=== PATIENT | female | born 1945 | race Caucasian/White ===

== ENCOUNTER → 2016-05-19 | Outpatient (CLI) | payer OTHER ==
[~2016-05-19] MED LIST: ASPEC325 PO; CALC-51 PO; ESCI1TAB10 PO; HYDC25 PO; LISI-725 PO; LISI5TAB PO; MULT-506 PO; MULTTAB58 PO; NAPROXEN PO; NITR1CAP32 PO; RED600TA PO; RXC5 PO; [UNRECOGNIZED DRUG - OTHER] PO
--- NOTE | 2016-05-20 06:42 | PAP/PSG TECHNICIAN REPORT ---
[facility] Blending Kettle Tender Polysomnogram Report Study name: None Report date: 05/20/2016 Study date: 05/19/2016 Referring Physician: Daphne Yu M.D. Name: PRINCESS SOMMER Interpreting Physician: Ana Yu M.D. Date of : 1945 Blending Kettle Tender: Vonnie Stren [facility]. Sex: Female Age: 70 StudyType: PSG Weight: 172 lbs Height: 70 years, Height 5' 8" Neck Circum: 14 inches BMI: 26.15 Medications: Lexapro 20 mg, Lipitor 10 mg, Prinivil 20 mg, HCTZ 25 mg, Caltrate 600 + D, MultiVitamins Patient History 70 yr. old male here for a diagnostic sleep study with ETC02. Patient complains of restlessness, loud snoring. and wakes up choking. Patients [place] sleepiness scale score is 5/24. Parameters Monitored NPSG: E1-M2, E2-M1, Fp1-M2, Fp2-M1, F3-M2, F4-M2, F4-M1, C3-M2, C4-M2, C4-M1, O1-M2, O2-M2, O2-M1, T3-M2, T4-M1, P3-M2, P4-M1, CHIN1, CHIN2, HR, EKG, Legs, PFLOW, SNOR, FLOW, CFLOW, Tidal Volume, THOR, ABDO, SpO2, PLTH, CPRESS, ETCO2 Wave, ETCO2, pH Sleep Architecture Sleep Stages Time at Lights Off 8:29:57 PM STAGES Time (min.) TST (%) Time at Lights On 5:41:27 AM Wake 206.0 -- Total Recording Time (TRT) 552.00 min. N1 66.5 19 Total Sleep Period (TSP) 487.0 min. N2 229.0 66 Total Sleep Time (TST) 345.5min. N3 8.0 2 Awake Time 206.5 min. REM 42.0 12 Wake after Sleep Onset 143.0 min. Sleep Efficiency (SE) 63 % Sleep Onset Latency (ABEL) 63.0 min. Number of Stage 1 Shifts None Awakenings 31 Stage Changes 169 Number of REM periods 5 REM 42.0 12 REM Latency 162.5 min. NREM 303.5 88 Body Position Analysis Supine Right Left Side Prone Vertical Total Sleep Time (min.) 351.2 34.8 61.5 96.27 0.0 1.1 Total Sleep Time (%) 72% 10% 18% 28 0% N/A% Total Sleep Time REM (min.) 42.0 0.0 0.0 None 0.0 0.0 Total Sleep Time NREM (min.) 207.2 34.8 61.5 None 0.0 0.0 Intermittent Wake (min.) 102.0 65.1 37.8 None 0.0 1.1 Total Sleep Period (%) 62% None None None None None Arousals Myoclonus (PLM) * Events Count Index Events Count Index Spontaneous 4 1 Events Awake (PLMW) 220 64.1 Respiratory 53 9.9 Events Asleep w/ Arousal (PLMA) 34 5.9 PLM 32 6 Events Asleep w/o Arousal (PLMS) 458 79.5 Snoring 12 2 Total Asleep 492 85.4 Total 101 18 Total 712 77 Respiratory Analysis * CA OA MA CH H RERA Total Count 0 41 0 0 133 0 174 Index 0.0 7.1 0.0 0 23.1 0 30.2 Mean Duration 0.0 21.0 0.0 0.00 23.3 0.0 22.8 Longest Duration 0.0 38.2 0.0 0.00 0.0 0.0 47.2 Respiratory Event Summary Total Supine ~Supine Right Left Prone REM NREM Apneas Count 41 38 3 0 3 N/A 13 28 Index 7.1 9 2 0.0 2.9 N/A 19 6 Hypopneas (4% Desat) Count 133 118 15 0 15 N/A 15 118 Index 23.1 28.4 9 0.0 14.6 N/A 21.4 23.3 Apneas & All Hypopneas Count 174 156 18 0 18 N/A 28 146 Index 30.2 38 11 0 18 N/A 40.0 28.9 Respiratory Events (Charge Account Clerk+All Hyp+RERA) Count 174 156 18 0 18 N/A 28 146 Index 30.2 38 11 0.0 17.6 N/A 40.0 28.9 Respiratory Related Arousal Count 53 156 2 0 2 N/A 9 48 Index 9.9 13 1 0 2 N/A 13 9 Snoring Analysis Supine Right Left Prone REM NREM Total Snore duration 24.4 min Snores count 872 150 156 N/A 348 830 1,178 Snore mean duration 1.2 Sec Snores index 210 259 152 N/A 497.1 164.1 204.6 TST with snoring (%) 7.1% SpO2 Analysis Total REM NREM Awake <50% 0.0 min. 0.0 min. 0.0 min. 0.0 min. 51 - 60% 0.0 min. 0.0 min. 0.0 min. 0.0 min. 61 - 70% 0.0 min. 0.0 min. 0.0 min. 0.0 min. 71 - 80% 0.0 min. 0.0 min. 0.0 min. 0.0 min. 81 - 90% 220.5 min. 11.3 min. 168.6 min. 40.6 min. 91 - 100% 324.8 min. 30.7 min. 134.9 min. 159.2 min. Average 91 91 90 92 Minimum SpO2 82 82 82 83 Desaturation Event Index 20.2 34.3 29.1 5.5 # Desat. Events below 89% 125 18 102 5 Time(%) with Saturation below 89% 8.9 0.8 7.4 0.7 Time(min.) with Saturation below 89% 48.4 4.6 40.2 3.6 Heart Rate Analysis End Tidal CO2 Analysis Min (bpm) Max (bpm) Average (bpm) TSP (mins) % of TSP Awake 55 75 65 Above 55 mmHg 0.0 0.0 NREM 55 71 63 50-55 mmHg 0.0 0.0 REM 59 73 65 45-50 mmHg 0.0 0.0 Overall 55 73 63 40-45 mmHg 0.1 0.0 35-40 mmHg 31.0 9.0 30-35 mmHg 122.2 35.4 Average ETCO2 0.0 Supplemental O2 Values Minimum O2 level: None Value Start Time End Time Blending Kettle Tender Comments Mrs. Sommer slept in the right, left, and supine positions. No cardiac arrhythmia. PLMs noted. No bruxism noted. Snoring was noted and scored as a 2 on a scale of 0 through 5. (0=no snoring, 5=snoring loud enough to be heard through a closed door or down the olea way) Mrs. Sommer awoke to use the restroom once during the night. Mrs. Sommer stated, I slept okay, I should have take Alieve for my hip pain. The final report will be interpreted and signed by a sleep physician. The completed physician report will then be placed in the patient medical record. Therapy (cm H2O) 0 TIB (min.) 551.5 TST (min.) 345.5 Sleep Onset (min.) 63.0 REM Onset From Sleep (min.) 162.5 Sleep Efficiency % 63 Wakefulness (%) 37 Wakefulness (min.) 206.5 NREM 1 (%) 19 NREM 1 (min.) 66.5 NREM 2 (%) 66 NREM 2 (min.) 229.0 NREM 3 (%) 2 NREM 3 (min.) 8.0 REM (%) 12 REM (min.) 42.0 # Arousals 101 Arousal Index 18 # Snore 1,178 Snore Index 204.6 AHI 30.2 AHI Supine 38 AHI Non-Supine 11 NREM AHI 28.9 REM AHI 40.0 RDI 30.2 # Obstructive Apnea 41 # Central Apnea 0 # Mixed Apnea 0 # Hypopneas 133 RERAs 0 Total Respiratory Events 187 Time Below SpO2 89% (min.) 44.8 Mean NREM SpO2 (%) 90 Mean REM SpO2 (%) 91 Mean Sleep SpO2 (%) 91 Min NREM SpO2 (%) 82 Min REM SpO2 (%) 82 Position Supine (min.) 351.2 Position Non-supine (min.) 96.3 LM Index Sleep 85.4 LM Index NREM 87.8 LM Index REM 68.6 Mean Heart Rate (bpm) 63 Min Heart Rate (bpm) 55
--- NOTE | 2016-05-31 18:35 | POLYSOMNOGRAPH REPORT ---
REFERRING PERSON: Dr. Yusuf Yu. SHRINK PIT OPERATOR: Vonnie Stern. Ms. Lopez is a 70-year-old female sent for a diagnostic sleep study. She complains of restlessness, loud snoring and waking up feeling like she cannot catch her breath/choking. Her [place] sleepiness scale score on the evening of this study is 5, BMI is 26.15. Following the technical and digital specifications of the [place] [employer] (AASM) a standard diagnostic polysomnogram was performed monitoring EEG, EOG, EMG (chin and leg deviations), oxygen saturation, body position, digital video, respiratory effort and airflow.? The sleep Stage and event scoring was based on the AASM Manual for the Scoring of Sleep and Associated Events 2007 edition.? Apneas are defined as a drop in the peak thermal sensor excursion by >90% of baseline for at least 10 seconds.? Hypopneas were scored using the 4% oxygen desaturation rule (4A-Medicare) and a decrease in the nasal pressure excursions by >30% of baseline for at least 10 seconds.? Respiratory effort-related arousal (RERA's) is defined as a sequence of breaths lasting at least 10 seconds characterized by increasing respiratory effort or flattening of the nasal pressure waveform leading to an arousal from sleep when the sequence of breaths does not meet criteria for an apnea or hypopnea.? Apnea Hypopnea index (AHI) is defined as the number of apneas and hypopneas occurring in an hour of sleep.? Respiratory disturbance index (RDI) is defined as the number of apneas, hypopneas, and RERA's occurring in an hour of sleep. Ms. Lopez's total sleep period time was 487 minutes. Total sleep time was 345.5 minutes. Sleep efficiency was 63%. Latency to sleep onset was 63 minutes with wake after sleep onset of a 143 minutes. Total non-REM sleep time was 303.5 minutes. She spent 19% of that time in N1 sleep, 66% in N2 sleep and 2% in N3 sleep. REM latency was 162.5 minutes. Total REM sleep time was 42 minutes or 12% of total sleep time. There were 101 cortical arousals from sleep. Four of these arousals were spontaneous, 53 were due to respiratory events, 32 due to periodic limb movements of sleep, and 12 were due to snoring. There were 492 periodic limb movements noted on this test. Limb movement index was 85.4. Limb movement with arousal index was 5.9. On this sleep study, this patient had no central, 41 obstructive, and no mixed apneas. Additionally, there were 133 hypopnea. Apnea-hypopnea index was 30.2 consistent with severe sleep apnea. Supine AHI was 38m non-supine AHI was 11. REM AHI was 40, non-REM AHI was 28.9. 1178 snoring events were recorded. Total sleep time with snoring was 7.1%. Mean saturation was 91% with desaturations to 82%. Saturations were less than 89% for 48.4 minutes of recorded time. This is significant nocturnal hypoxemia. There was no cardiac ectopy noted on this study. Heart rates during sleep ranged from a low of 55 beats per minute to a high of 73 beats per minute. End tidal CO2 data was incomplete. IMPRESSION AND PLAN: A 70-year-old female with evidence of severe sleep apnea and significant nocturnal hypoxemia on this sleep study. 1. This patient would likely benefit from positive airway pressure therapy. She should return to the sleep lab for a full night titration and then based on those results be started on equipment at home. A download from her machine can be reviewed in 1 month both to check compliance as well as AHI and further pressure adjustments can occur at that time. 2. Should this patient be unwilling or unable to tolerate CPAP therapy, she should be referred to ear, nose and throat or oral surgery/dental medicine (if appropriate) to discuss alternative treatments for sleep disordered breathing.
== END | disposition home or self-care (01) ==
LOC: C.NEUR 20:00
PROVIDERS: ATTEND Family Medicine
DX: F51.11 Primary hypersomnia (principal); R06.83 Snoring; R53.83 Other fatigue; G47.61 Periodic limb movement disorder; G25.81 Restless legs syndrome; J44.9 Chronic obstructive pulmonary disease, unspecified; I10 Essential (primary) hypertension

== ENCOUNTER → 2016-07-02 | Outpatient (CLI) | payer OTHER ==
--- NOTE | 2016-07-03 06:22 | PAP/PSG TECHNICIAN REPORT ---
[facility] Policy Service Coordinator Polysomnogram Report Study name: None Report date: 07/03/2016 Study date: 07/02/2016 Referring Physician: Daphne Yu M.D. Name: ROS PRINCESS HARJEET Interpreting Physician: Ana Yu M.D. Date of : 1945 Policy Service Coordinator: Lesa Young RPSGT. Sex: Female Age: 70 Study Type: PSG PAP Weight: 172 lbs 14 in Height: 70 years, Height 5' 8" Neck Circum: BMI: 26.15 Medications: Lexapro 20 mg, Lipitor 10 mg, Prinivil 20 mg, HCTZ 25 mg, Caltrate 600 + D, Multi Vitamins Patient History 70 yr-old female here for a new CPAP treatment study. She was found to be positive for TERESA with an AHI of 30. Her diagnostic study was on 05/19/16. She chose a Mirage FX Soft edge nasal mask size small from [employer]. The test was started on room air and 4 CMH2O. ETCO2 testing could be done with CPAP in place. Room 1 Parameters Monitored NPSG: E1-M2, E2-M1, Fp1-M2, Fp2-M1, F3-M2, F4-M2, F4-M1, C3-M2, C4-M2, C4-M1, O1-M2, O2-M2, O2-M1, T3-M2, T4-M1, P3-M2, P4-M1, CHIN1, CHIN2, HR, EKG, Legs, PFLOW, SNOR, FLOW, CFLOW, Tidal Volume, THOR, ABDO, SpO2, PLTH, CPRESS, ETCO2 Wave, ETCO2, pH Sleep Architecture Sleep Stages Time at Lights Off 9:26:08 PM STAGES Time (min.) TST (%) Time at Lights On 5:35:08 AM Wake 129.5 -- Total Recording Time (TRT) 489.00 min. N1 57.0 16 Total Sleep Period (TSP) 466.0 min. N2 211.5 59 Total Sleep Time (TST) 359.5min. N3 36.5 10 Awake Time 129.5 min. REM 54.5 15 Wake after Sleep Onset 106.5 min. Sleep Efficiency (SE) 74 % Sleep Onset Latency (ABEL) 23.0 min. Number of Stage 1 Shifts None Awakenings 24 Stage Changes 128 Number of REM periods 9 REM 54.5 15 REM Latency 151.5 min. NREM 305.0 85 Body Position Analysis Supine Right Left Side Prone Vertical Total Sleep Time (min.) 244.3 76.7 64.2 140.92 20.1 0.0 Total Sleep Time (%) 56% 21% 18% 39 5% N/A% Total Sleep Time REM (min.) 31.0 0.0 23.5 None 0.0 0.0 Total Sleep Time NREM (min.) 170.6 76.7 40.7 None 17.0 0.0 Intermittent Wake (min.) 42.7 38.0 45.7 None 3.1 0.0 Total Sleep Period (%) 51% None None None None None Arousals Myoclonus (PLM) * Events Count Index Events Count Index Spontaneous 33 6 Events Awake (PLMW) 128 59.3 Respiratory 3 0.7 Events Asleep w/ Arousal (PLMA) 59 9.8 PLM 59 10 Events Asleep w/o Arousal (PLMS) 311 51.9 Snoring 4 1 Total Asleep 370 61.8 Total 99 17 Total 498 61 Respiratory Analysis * CA OA MA CH H RERA Total Count 0 1 0 0 7 3 8 Index 0.0 0.2 0.0 0 1.2 1 1.8 Mean Duration 0.0 10.2 0.0 0.00 15.6 14.5 14.8 Longest Duration 0.0 10.2 0.0 0.00 0.0 16.4 18.5 Respiratory Event Summary Total Supine ~Supine Right Left Prone REM NREM Apneas Count 1 1 0 0 0 0 0 1 Index 0.2 0 0 0.0 0.0 0 0 0 Hypopneas (4% Desat) Count 7 5 2 1 1 0 0 7 Index 1.2 1.5 1 0.8 0.9 0.0 0.0 1.4 Apneas & All Hypopneas Count 8 6 2 1 1 0 0 8 Index 1.3 2 1 1 1 0 0.0 1.6 Respiratory Events (Lobster Catcher+All Hyp+RERA) Count 8 9 2 1 1 0 0 8 Index 1.8 3 1 0.8 0.9 0.0 0.0 2.2 Respiratory Related Arousal Count 3 9 0 0 0 0 0 4 Index 0.7 1 0 0 0 0 0 1 Snoring Analysis Supine Right Left Prone REM NREM Total Snore duration 2.4 min Snores count 54 16 10 1 15 66 81 Snore mean duration 1.8 Sec Snores index 16 13 9 4 16.5 13.0 13.5 TST with snoring (%) 0.7% Desaturation Event Summary: Minimum %SpO2 Event Count Mean/Min/Max Duration(sec.) Desaturation Index % Time In Bed > 90 16 19.5 / 11.0 / 45.0 6.4 30.9 86 - 90 12 16.9 / 9.0 / 44.0 2.2 69.1 81 - 85 0 N/A 0.0 0.0 76 - 80 0 N/A 0.0 0.0 71 - 75 0 N/A 0.0 0.0 66 - 70 0 N/A 0.0 0.0 61 - 65 0 N/A 0.0 0.0 56 - 60 0 N/A 0.0 0.0 51 - 55 0 N/A 0.0 0.0 < 50 0 N/A 0.0 0.0 Total REM NREM Awake <50% 0.0 min. 0.0 min. 0.0 min. 0.0 min. 51 - 60% 0.0 min. 0.0 min. 0.0 min. 0.0 min. 61 - 70% 0.0 min. 0.0 min. 0.0 min. 0.0 min. 71 - 80% 0.0 min. 0.0 min. 0.0 min. 0.0 min. 81 - 90% 333.8 min. 37.6 min. 235.8 min. 60.4 min. 91 - 100% 149.1 min. 16.9 min. 68.1 min. 64.1 min. Average 90 90 90 91 Minimum SpO2 86 88 86 86 Desaturation Event Index 2.5 0.0 2.2 4.2 # Desat. Events below 89% 15 N/A 6 9 Time(%) with Saturation below 89% 3.4 0.2 2.2 1.1 Time(min.) with Saturation below 89% 16.4 0.8 10.4 5.2 Time (mins) REM (mins) NREM (mins) % of TST SpO2 Below 90% 11 N/A N11 36.2 SpO2 Below 88% 2 0 0 0 Heart Rate Analysis Min (bpm) Max (bpm) Average (bpm) Awake 57 127 65 NREM 54 127 64 REM 57 71 65 Overall 54 127 64 Supplemental O2 Values Minimum O2 level: None Value Start Time End Time Policy Service Coordinator Comments Ms. Lopez slept in the right, left, supine and prone positions. No cardiac arrhythmias were noted. PLMs and arousals from leg movements were noted. No bruxism noted. CPAP was initiated at +4 CMH2O and up-titrated to a level of +6 CMH2O, Cflex 2 which nearly eliminated all respiratory events and snoring. A Mirage FX Soft edge nasal mask size small from [employer] was used during titration She awoke to use the restroom one time during the night. Ms. Lopez stated that she slept better than usual. The final report will be interpreted and signed by a sleep physician. The completed physician report will then be placed in the patient medical record. Therapy Event: Therapy (cm H20) 4 6 Total Time at Pressure (min.) 183.4 305.6 TST at Pressure (min.) 118.9 240.6 # Periods 1 1 Sleep Onset (min.) 23.0 0.0 REM Onset (min.) 174.5 0.0 Sleep Efficiency % 64 78 Wakefulness (%) 35.2 21.3 Wakefulness (min.) 64.5 65.0 NREM 1 (%) 8.2 13.7 NREM 1 (min.) 15.0 42.0 NREM 2 (%) 44.2 42.7 NREM 2 (min.) 81.0 130.5 NREM 3 (%) 7.6 7.4 NREM 3 (min.) 14.0 22.5 REM (%) 4.9 14.9 REM (min.) 8.9 45.6 # Arousals 24 75 Arousal Index 12.1 18.7 # Snore 25 56 Snore Index 12.6 14.0 AHI 3.0 0.5 AHI Supine 6.3 0.4 AHI Non-Supine 0.8 0.7 NREM AHI 3.3 0.6 REM AHI 0.0 0.0 RDI 3.5 1.0 # Obstructive 1 0 # Central Ap 0 0 # Mixed 0 0 # Hypopneas 5 2 RERAS 1 2 Total Respiratory Events 7 4 Time Below SpO2 89.00% (min.) 9.4 1.8 Mean NREM SpO2 (%) 90 90 Mean REM SpO2 (%) 90 90 Mean Sleep SpO2 (%) 90 90 Min NREM SpO2 (%) 86 86 Min REM SpO2 (%) 89 88 Position Supine (min.) 47.3 154.3 Position Non-supine (min.) 71.6 86.3 LM Index Sleep 83.2 51.1 LM Index NREM 85.1 40.6 LM Index REM 60.4 96.1 Mean Heart Rate (bpm) 67 63 Min Heart Rate (bpm) 59 54
--- NOTE | 2016-07-14 07:49 | POLYSOMNOGRAPH REPORT ---
REFERRING PERSON: Dr. Yusuf Yu. SUPERVISOR CAP AND HAT PRODUCTION: Lesa Young. Ms. Lopez is a 70-year-old female who was diagnosed with severe obstructive sleep apnea. She returns to the sleep lab for a CPAP titration study. [place] sleepiness scale score on the evening of this study was not recorded. BMI 26.15. Following the technical and digital specifications of the [place] [employer] (AASM) a standard diagnostic polysomnogram was performed monitoring EEG, EOG, EMG (chin and leg deviations), oxygen saturation, body position, digital video, respiratory effort and airflow. The sleep Stage and event scoring was based on the AASM Manual for the Scoring of Sleep and Associated Events 2007 edition. Apneas are defined as a drop in the peak thermal sensor excursion by >90% of baseline for at least 10 seconds. Hypopneas were scored using the 4% oxygen desaturation rule (4A-Medicare) and a decrease in the nasal pressure excursions by >30% of baseline for at least 10 seconds. Respiratory effort-related arousal (RERA's) is defined as a sequence of breaths lasting at least 10 seconds characterized by increasing respiratory effort or flattening of the nasal pressure waveform leading to an arousal from sleep when the sequence of breaths does not meet criteria for an apnea or hypopnea. Apnea Hypopnea index (AHI) is defined as the number of apneas and hypopneas occurring in an hour of sleep. Respiratory disturbance index (RDI) is defined as the number of apneas, hypopneas, and RERA's occurring in an hour of sleep. Ms. Lopez's total sleep period time was 466 minutes. Total sleep time was 359.5 minutes. Sleep efficiency was 74%. Latency to sleep onset was 23 minutes with wake after sleep onset of 106.5 minutes. Total non-REM sleep time was 305 minutes. She spent 16% of that time in N1 sleep, 59% in N2 sleep and 10% in N3 sleep. REM latency was 151.5 minutes. Total REM sleep time was 54.5 minutes or 15% of total sleep time. There were 99 cortical arousals from sleep. 33 of these arousals were spontaneous, 3 were due to respiratory events, 59 were due to periodic limb movements of sleep and 4 were due to snoring. There were 370 periodic limb movements noted on this test. Limb movement index was 61.8 and limb movement with arousal index was 9.8. On this titration, Ms. Lopez had no central, 1 obstructive, and no mixed apneas. She has 7 hypopneas and 3 RERA. Overall, apnea-hypopnea index was 1.3. 81 snoring events were recorded. Total sleep time with snoring was 0.7%. Mean saturation was borderline low at 90%. There were desaturations to 86%. During the course of the night, there were saturations less than 89% for 16.4 minutes of recorded time. There was no cardiac ectopy noted on this study. Heart rates ranged from a low of 54 to a high of 127 beats per minute during sleep. As stated above, this was a CPAP titration study. Ms. Lopez chose a Mirage FX small nasal mask for her titration. She was titrated from a CPAP pressure of 4 to a CPAP pressure of 6 over the course of the night. She was observed on a pressure of 6 for 240.6 minutes of recorded time. There were 45.6 minutes of supine REM sleep on this pressure. AHI was 0.5 and RDI was 1.0 on this pressure. Saturations were less than 89 for only 1.8 minutes of recorded time. IMPRESSION AND PLAN: Successful CPAP titration study in this patient with known severe sleep apnea. I would recommend that this patient be started on CPAP at a pressure of 6. A download from her machine can be reviewed in 1 month both to check compliance as well as AHI and further pressure adjustments can occur at that time.
== END | disposition home or self-care (01) ==
LOC: C.NEUR 20:00
PROVIDERS: ATTEND Family Medicine
DX: G47.33 Obstructive sleep apnea (adult) (pediatric) (principal)

== ENCOUNTER 2016-09-18 05:16 | Inpatient (IN) | payer OTHER ==
[2016-08-26 14:28] VITALS: Ht 174 cm; Wt 76.4 kg
--- NOTE | 2016-08-26 15:03 | PAT Medication Instructions ---
Service Date Aug 26, 2016. Current Home Medication List Calcium Carbonate-Vitamin D (Calcium), 1 TAB PO QAM Escitalopram Oxalate (Lexapro), 20 MG PO QAM Hydrochlorothiazide (Hctz *), 25 MG PO QAM Lisinopril (Zestril), 20 MG PO QAM Multivitamin (Multivitamin), 1 TAB PO QAM Nitrofurantoin Macrocrystals (Macrodantin), 100 MG PO TID [Naproxen], 1 TAB PO BID PRN for dish network installer Instructions For Your Scheduled Surgery - Hold the following medications 14 days prior to surgery per surgeon's instructions: [Naproxen], 1 TAB PO BID PRN - Hold the following medications the morning of surgery: Hydrochlorothiazide (Hctz *), 25 MG PO QAM Lisinopril (Zestril), 20 MG PO QAM Calcium Carbonate-Vitamin D (Calcium), 1 TAB PO QAM Multivitamin (Multivitamin), 1 TAB PO QAM - Take the following medications the morning of surgery with a sip of water OTHERWISE NOTHING TO EAT OR DRINK AFTER MIDNIGHT: Escitalopram Oxalate (Lexapro), 20 MG PO QAM If you have any questions please call us at [phone] or [phone] or [phone]
--- NOTE | 2016-08-26 15:45 | DIAGNOSTIC IMAGING REPORT ---
CHEST PREADMISSION(PA/LAT) CLINICAL HISTORY: Preoperative chest COMPARISON STUDY: 07/14/2014 FINDINGS: The cardiac and mediastinal contours are normal. There is no evidence of focal pulmonary consolidation. There is no evidence of failure. No pleural effusions are visualized.[ There are minimal left basilar atelectatic changes IMPRESSION: No active disease in the chest. Electronically signed by: Des Marie M.D. 08/26/2016 3:44 PM Dictated Date/Time: 08/26/2016 3:43 PM
[2016-08-26 16:18] LABS: URINE APPEARANCE CLEAR (CLEAR); URINE BILIRUBIN NEG (NEG); URINE COLOR YELLOW; URINE EPITHELIAL CELL AUTO >30 /lpf (0-5); URINE NITRITE NEG (NEG); URINE SPECIFIC GRAVITY 1.021 (1.000-1.030); UROBILINOGEN NEG (NEG)
[2016-08-26 16:21] LABS: MANUAL MICROSCOPIC REQUIRED? NO; REVIEW REQ? NO
[2016-08-26 16:24] LABS: PARTIAL THROMBOPLASTIN RATIO 0.9; PROTHROMBIN TIME (PATIENT) 10.5 SECONDS (9.0-12.0)
[2016-08-26 16:39] LABS: BASO % 0.6 %; BASO ABS # 0.03 K/uL (0-0.2); COMPLETE YES; EOS % 4.1 %; HEMATOCRIT 39.1 % (37-47); IG% 0.2 %; LYMPH ABS # 1.35 K/uL (1.2-3.4); MEAN CELL VOLUME 90.5 fL (80-100); MEAN CORPUSCULAR HEMOGLOBIN 30.8 pg (25-34); MEAN PLATELET VOLUME 9.8 fL (7.4-10.4); MONO % 8.2 %; NEUT % 57.9 %; PLATELET COUNT 261 K/uL (130-400); RED BLOOD COUNT 4.32 M/uL (4.2-5.4); WHITE BLOOD COUNT 4.66 K/uL (4.8-10.8)
[2016-08-26 16:42] LABS: BUN/CREATININE RATIO 26.8 (10-20); CALCIUM 9.8 mg/dl (8.5-10.1); CREATININE 0.92 mg/dl (0.60-1.20); POTASSIUM 4.8 mmol/L (3.5-5.1)
[2016-09-18] VITALS (9 sets, daily range): BP systolic 90–131; BP diastolic 53–73; PULSE 60–82; TEMP 36.4–36.7; O2SAT 92–97
[~2016-09-18] VITALS: Ht 174 cm; Wt 76.4 kg
[~2016-09-18 05:16] MED LIST changes: -ASPEC325 PO; -LISI5TAB PO; -MULTTAB58 PO; -NITR1CAP32 PO; -RED600TA PO; -RXC5 PO; -[UNRECOGNIZED DRUG - OTHER] PO
[2016-09-18] MEDS ORDERED: GABAPENTIN 300 MG CAP PO SCH (06:00)
[2016-09-18] MEDS ORDERED: CEFAZOLIN 2000 MG/60 ML D5W 60 ML IV SCH (06:00)
[2016-09-18] MEDS ORDERED: ROPIVACAINE 5MG/ML 30 ML 150 MG, BUPIVACAINE/EPINEPHR 0.5% MPF 30 ML, KETOROLAC TROMETH... INFIL SCH ×7 (06:00)
[2016-09-18] MEDS ORDERED: FAMOTIDINE 20 MG TAB PO SCH (06:00)
[2016-09-18] MEDS ORDERED: LACTATED RINGER'S 1000ML 1,000 ML IV SCH (06:00)
[2016-09-18] MEDS ORDERED: ACETAMINOPHEN 500 MG TAB PO SCH (06:00)
[2016-09-18] MEDS ORDERED: LACTATED RINGER'S 1000ML IV SCH (06:00)
[2016-09-18] MEDS ORDERED: LACTATED RINGER'S 1000ML 500 ML IV ONE (06:00)
[2016-09-18] MEDS ORDERED: BUPIVACAINE 0.5 % 5 MG/1 ML PF 10ML VIAL ONE (06:27)
[2016-09-18] MEDS: TRANEXAMIC ACID INJ 1,000 MG in SODIUM CHLORIDE 0.9% 100ML 100 ML IV SCH ×2 (06:30→06:38)
--- NOTE | 2016-09-18 06:30 | History and Physical ---
History & Physical Date Sep 18, 2016. Chief Complaint Osteoarthritis Right Hip History of Present Illness The patient is a 71 year old female with complaints of chronic Right hip pain Past Medical/Surgical History Medical Problems: (1) HTN (hypertension), depression, sleep apnea with CPAP, celiac disease Additional History Hepatic Disease: No Endocrine Disorder: No Kidney Disease: No Hypertension: Yes Heart Disease: No Bleeding Tendencies: No Infectious Diseases: No Allergies Coded Allergies: Shrimp (Verified Allergy, Intermediate, SWELLING LIPS AND FACE, 09/18/16) Atorvastatin (Unverified Allergy, Unknown, MUSCLE ACHES, 09/18/16) Gluten (Verified Allergy, Unknown, CELIAC-WHEAT,BARLEY ALLERGY, 09/18/16) Latex1 -Allergic Contact Dermititis (Unverified Allergy, Unknown, CONATCT- ITCHINESS, 09/18/16) Home Medications Scheduled Calcium Carbonate-Vitamin D (Calcium), 1 TAB PO QAM Escitalopram Oxalate (Lexapro), 20 MG PO QAM Hydrochlorothiazide (Hctz *), 25 MG PO QAM Lisinopril (Zestril), 20 MG PO QAM Multivitamin (Multivitamin), 1 TAB PO QAM Scheduled PRN [Naproxen], 1 TAB PO BID PRN for RN Physical Examination Skin: warm/dry, no rash Eyes: normal inspection, EOMI, sclerae normal ENT: normal ENT inspection, pharynx normal Head: normocephalic, atraumatic Neck: supple, no adenopathy, trachea midline Respiratory/Chest: lungs clear, normal breath sounds, no respiratory distress Cardiovascular: regular rate, rhythm, no edema, no murmur Abdomen / GI: normal bowel sounds, non tender Back: normal inspection Extremities: normal inspection, normal range of motion Neurologic/Psych: no motor/sensory deficits, alert, normal reflexes, oriented x 3 Addiitonal Comments: antalgic gait, pain with forced internal rotation right hip Diagnosis Osteoarthritis Right Hip ASA Classification: ASA Class II Plan of Treatment Right total hip arthroplasty
[2016-09-18] MEDS ORDERED: BACITRACIN 50000 UNIT VIAL ONE (06:38)
[2016-09-18] MEDS ORDERED: ORTHO JOINT ANESTHETIC ONE (06:38)
[2016-09-18] MEDS ORDERED: LIDOCAINE HCL 2% 2 ML VIAL (20MG/ML) ONE (06:42)
[2016-09-18] MEDS ORDERED: MIDAZOLAM HCL 1 MG/ML 2ML VIAL ONE ×2 (06:42→07:06)
[2016-09-18] MEDS ORDERED: PROPOFOL IV EMULSION 10 MG/ML 20 ML VIAL IV ONE (06:42)
[2016-09-18] MEDS ORDERED: FENTANYL CITRATE INJ 50 MCG/1 ML 2 ML VIAL ONE (06:42)
[2016-09-18] MEDS ORDERED: ONDANSETRON INJ 2 MG/ML 2 ML VIAL ONE (07:17)
[2016-09-18] MEDS ORDERED: ATROPINE SULFATE 0.1 MG/ML 5ML SYR IV PRN (08:45)
[2016-09-18] MEDS ORDERED: EpHEDrine SULFATE INJ 50 MG/ML AMP IV PRN (08:45)
[2016-09-18] MEDS ORDERED: FENTANYL CITRATE INJ 50 MCG/1 ML 2 ML VIAL IV PRN (08:45)
[2016-09-18] MEDS ORDERED: ONDANSETRON INJ 2 MG/ML 2 ML VIAL IV PRN ×2 (08:45→09:15)
[2016-09-18] MEDS ORDERED: EpHEDrine SULFATE 50MG/5ML SYR ONE (09:08)
--- NOTE | 2016-09-18 09:14 | [facility] Post Operative Brief Note ---
Immediate Operative Summary Operative Date Sep 18, 2016. Pre-Operative Diagnosis Right Hip Osteoarthritis Post-Operative Diagnosis Right Hip Osteoarthritis Procedure(s) Performed Right Anterior Total Hip Arthroplasty Uncemented Surgeon Dr Abraham Gutierrez Glass Processing Worker Surgeon(s) Lloyd Hernandez PA-C Estimated Blood Loss 300cc Findings as above Specimens As Per Surgeon A. Femoral Head Complication(s) None Disposition Recovery Room / PACU
[2016-09-18] MEDS ORDERED: MAGNESIUM HYDROXIDE SUSP 30 ML UDC PO PRN (09:15)
[2016-09-18] MEDS ORDERED: SILVER SULFADIAZINE 1% CR 50 GM JAR EXT PRN (09:15)
[2016-09-18] MEDS ORDERED: MoRPHine SULFATE 2 MG/ML CARP IV PRN (09:15)
[2016-09-18] MEDS ORDERED: SOD PHOSPHATE/SOD BIPHOSPHATE ENEMA 132 ML BTL PR PRN (09:15)
[2016-09-18] MEDS ORDERED: BISACODYL 10 MG SUPP PR PRN (09:15)
[2016-09-18] MEDS ORDERED: METOCLOPRAMIDE HCL INJ 5 MG/ML 2 ML VIAL IV PRN (09:15)
--- NOTE | 2016-09-18 10:02 | OPERATIVE REPORT ---
DATE OF OPERATION: 09/18/2016 PREOPERATIVE DIAGNOSIS: Primary osteoarthritis of the right hip. POSTOPERATIVE DIAGNOSIS: Same. PROCEDURE: Right total hip arthroplasty. SURGEON: Dr. Abraham Gutierrez. FARROWING WORKER: Alli Hernandez PA-C, whose assistance was necessary for helping with retraction and closure. ANESTHESIA: Spinal. COMPLICATIONS: None. CONDITION: Stable to PACU. IMPLANTS USED: I used a Biomet Taperloc total hip arthroplasty with a size 12 Taperloc stem with a high offset. A G7 52 mm acetabular cup with a single 20 mm screw and a G7 36 E1 poly liner and a 36 0 neck ceramic head. INDICATIONS: Mili is a pleasant 71-year-old female who presented to my office with complaints of chronic right hip and groin pain. X-rays and clinical examination were diagnostic for primary osteoarthritis of the right hip. After failing conservative treatment, she elected to undergo a right total hip arthroplasty. OPERATION AND FINDINGS: On 09/18/2016, she arrived at [facility] for the above procedure. She was seen in the preoperative holding area and the operative extremity was identified and signed. She was given a preoperative antibiotic and a spinal anesthetic. She was taken back to the operating room, laid on the table in supine position and given basic sedation. The right leg was then placed in Purist leg positioner. The right hip was then prepped and draped in sterile fashion. Time-out was done and the patient and operative extremity was properly identified. An anterior approach was used. A lot of the case was done under fluoroscopy. Dissection was taken down through the tensor fascia and the tensor was retracted laterally and the sartorius was retracted medially. Dissection was taken down through the circumflex vessels and they were ligated. The reflected head of the rectus was left on to the anterior capsule. The capsule was then incised and the femoral head was exposed. The femoral neck was then resected and the head was removed. The acetabulum was then exposed. Time was spent doing a complete circumferential labral release. The capsule was left intact. Sequential reaming up to a size 51 reamer was done. This gave good circumferential bleeding bone. A final G7 52 mm cup was then impacted into place. I was able to get good press fit. Placement was checked on fluoroscopy. A single 20 mm screw was placed, an E1 poly liner was snapped into place. The proximal femur was then exposed. Sequential broaching up to a size 12 broach was done. A high offset neck and a standard 36 head were trialed and multiple fluoroscopic images were taken and I was happy with the overall alignment. The hip was dislocated. The final size 12 implant was impacted into place, followed by a ceramic 36 mm 0 neck head. The hip was reduced and final fluoroscopic images showed anatomic reduction. The surrounding soft tissues were then injected with 100 mL of orthopedic pain control cocktail. The entire joint was then irrigated with 3 liters of normal saline solution and bacitracin. The capsule was then closed with #1 Vicryl. A drain was placed. The tensor fascia was closed with #1 PDS suture and skin was closed with 2-0 Vicryl and 0 Prolene suture and a Prineo dressing. She was then taken to the postanesthesia care unit in stable condition. She tolerated the procedure well. I attest to the content of the Intraoperative Record and any orders documented therein. Any exception s are noted below.
--- NOTE | 2016-09-18 10:04 | DIAGNOSTIC IMAGING REPORT ---
AP PELVIS AND RIGHT HIP 2 VIEWS CLINICAL HISTORY: Osteoarthritis. Surgical study. COMPARISON STUDY: Outside radiograph dated 07/16/2016 FINDINGS: There are postsurgical changes of a total right hip arthroplasty. The acetabular and femoral components appear well seated. There is an overlying surgical drain. There is air within soft tissues consistent with recent surgery. IMPRESSION: Postsurgical changes of a total right hip arthroplasty. Electronically signed by: Des Marie M.D. 09/18/2016 10:03 AM Dictated Date/Time: 09/18/2016 10:01 AM
[2016-09-18] MEDS: SODIUM CHLORIDE 0.9% 1000ML 1,000 ML IV SCH ×2 (10:25→19:03)
--- NOTE | 2016-09-18 10:43 | Anesthesiology Progress Note ---
Anesthesia Post Op Note Date & Time Sep 18, 2016 at 10:42 Vital Signs Pain Intensity: 0 Vital Signs Past 12 Hours Date Time Temp Pulse Resp B/P (MAP) Pulse Ox O2 Delivery O2 Flow Rate FiO2 09/18/16 10:12 66 17 09/18/16 10:12 66 17 96 09/18/16 10:11 112/65 09/18/16 10:07 65 17 09/18/16 10:07 65 17 97 09/18/16 10:06 110/47 09/18/16 10:02 66 17 96 09/18/16 10:02 66 17 09/18/16 10:01 111/61 09/18/16 09:58 36.4 66 17 111/61 (82) 95 Nasal Cannula 2 09/18/16 09:57 66 19 96 09/18/16 09:57 65 19 09/18/16 09:56 112/49 09/18/16 09:52 68 16 09/18/16 09:52 68 16 95 09/18/16 09:51 90/54 09/18/16 09:47 67 22 109/50 96 09/18/16 09:47 67 22 09/18/16 09:42 69 18 09/18/16 09:42 69 18 98 09/18/16 09:41 120/49 09/18/16 09:39 73 22 09/18/16 09:39 72 22 99 09/18/16 09:36 130/61 09/18/16 09:34 69 17 09/18/16 09:34 68 17 100 09/18/16 09:31 123/55 09/18/16 09:30 109/58 09/18/16 09:29 70 15 09/18/16 09:29 36.4 70 14 109/58 97 Mask 10 09/18/16 09:29 70 15 97 09/18/16 05:51 36.7 69 20 131/73 95 Room Air Notes Mental Status: alert / awake / arousable, participated in evaluation Pt Amnestic to Procedure: Yes Nausea / Vomiting: adequately controlled Pain: adequately controlled Airway Patency, RR, SpO2: stable & adequate BP & HR: stable & adequate Hydration State: stable & adequate Neuraxial Anesthesia: was administered, sensory block is resolving Anesthetic Complications: no major complications apparent
[2016-09-18] MEDS: KETOROLAC TROMETHAMINE 15 MG/ML VIAL IV. SCH ×3 (11:34→23:18)
--- NOTE | 2016-09-18 11:51 | DIAGNOSTIC IMAGING REPORT ---
RIGHT HIP UNILATERAL 1 VIEW CLINICAL HISTORY: RT TOTAL ANTERIOR Right COMPARISON: None. DISCUSSION: The bones and joint spaces appear intact. There is no evidence of fracture, dislocation or bony disease. Anatomic alignment status post total right hip replacement IMPRESSION: Anatomic alignment status post total right hip replacement The above report was generated using voice recognition software. It may contain grammatical, syntax or spelling errors. Electronically signed by: Ash Abbott M.D. 09/18/2016 11:49 AM Dictated Date/Time: 09/18/2016 11:49 AM
[2016-09-18] MEDS: ACETAMINOPHEN IV 1,000 MG in EMPTY BAG 0 ML IV SCH ×2 (13:36→21:29)
[2016-09-18] MEDS: CEFAZOLIN IV 1,000 MG in DEXTROSE 5% 50ML 50 ML IV SCH ×2 (13:58→21:49)
[2016-09-18] MEDS: OXYCODONE HCL IR 5 MG TAB (IMMEDIATE RELEASE) PO PRN (14:39)
[2016-09-18] MEDS: DOCUSATE SODIUM 100 MG CAP PO SCH (20:33)
[2016-09-18] MEDS: SENNA 8.6 MG TAB PO SCH (20:33)
[2016-09-18] MEDS: ASPIRIN 325 MG ECTAB PO SCH (20:33)
[2016-09-19] VITALS (7 sets, daily range): BP systolic 96–112; BP diastolic 53–68; PULSE 60–76; TEMP 36.5–36.9; O2SAT 94–96
[2016-09-19] MEDS: SODIUM CHLORIDE 0.9% 1000ML 1,000 ML IV SCH (04:26)
[2016-09-19] MEDS: OXYCODONE HCL IR 5 MG TAB (IMMEDIATE RELEASE) PO PRN ×3 (04:27→15:32)
[2016-09-19] MEDS: ACETAMINOPHEN IV 1,000 MG in EMPTY BAG 0 ML IV SCH (05:15)
[2016-09-19] MEDS: KETOROLAC TROMETHAMINE 15 MG/ML VIAL IV. SCH ×4 (05:18→23:23)
[2016-09-19 06:06] LABS: BASO % 0.2 %; BASO ABS # 0.01 K/uL (0-0.2); COMPLETE YES; EOS % 0.8 %; HEMATOCRIT 27.5 % (37-47); IG% 0.2 %; LYMPH % 18.1 %; LYMPH ABS # 1.07 K/uL (1.2-3.4); MEAN CELL VOLUME 90.8 fL (80-100); MEAN CORPUSCULAR HEMOGLOBIN 30.7 pg (25-34); MEAN CORPUSCULAR HGB CONC 33.8 g/dl (32-36); MEAN PLATELET VOLUME 9.4 fL (7.4-10.4); MONO % 6.1 %; NEUT % 74.6 %; PLATELET COUNT 156 K/uL (130-400); RED BLOOD COUNT 3.03 M/uL (4.2-5.4); WHITE BLOOD COUNT 5.91 K/uL (4.8-10.8)
[2016-09-19 06:45] LABS: BUN/CREATININE RATIO 25.9 (10-20); CALCIUM 7.9 mg/dl (8.5-10.1); CREATININE 0.93 mg/dl (0.60-1.20); POTASSIUM 3.9 mmol/L (3.5-5.1)
[2016-09-19] MEDS: ASPIRIN 325 MG ECTAB PO SCH ×2 (08:27→21:35)
[2016-09-19] MEDS: ESCITALOPRAM OXALATE 20 MG TAB PO SCH (08:27)
[2016-09-19] MEDS: PANTOprazole SOD 40 MG TAB PO SCH (08:28)
[2016-09-19] MEDS: CALCIUM 600MG + VIT D 400 IU TAB PO SCH (08:28)
[2016-09-19] MEDS: HYDROCHLOROTHIAZIDE 25 MG TAB PO SCH (08:28)
[2016-09-19] MEDS: MULTIVITAMIN TAB PO SCH (08:28)
[2016-09-19] MEDS: LISINOPRIL 20 MG TAB PO SCH (08:28)
[2016-09-19] MEDS: DOCUSATE SODIUM 100 MG CAP PO SCH ×2 (08:29→21:35)
--- NOTE | 2016-09-19 08:50 | PROGRESS NOTE ---
DATE: 09/19/2016 DATE: 09/19/2016 CHIEF COMPLAINT: Status post right total hip arthroplasty postop day #1. PROGRESS: Mili was seen and examined at bedside today. Overall, she is doing very well. She is sitting up in her chair. She is having some soreness in the hip, but no other complaints. PHYSICAL EXAMINATION: RIGHT HIP: The dressing is clean and dry and the drain is to suction. She has active dorsiflexion and plantarflexion of her right ankle. She is able to actively extend her quads. She has no numbness or paresthesias. LABORATORY DATA: She has an H&H today of 9.3 and 27.5. Her glucose is 115. Her vital signs are all stable on room air. She is voiding on her own. X-rays postoperatively of the right hip show the prosthesis to be in anatomic alignment without any evidence of fracture, dislocation or loosening. IMPRESSION: Status post right total hip arthroplasty postop day #1. PLAN: At this point, she is doing very well and happy with the progress. Will continue oxycodone for pain control. She is on aspirin 325 mg twice a day for DVT prophylaxis. She will be seen by physical therapy today. Tomorrow the nursing staff can change the dressing, pull the drain and will likely discharge to home with the above instructions.
[2016-09-19] MEDS: ACETAMINOPHEN 500 MG TAB PO SCH ×2 (13:54→21:35)
[2016-09-19] MEDS: SENNA 8.6 MG TAB PO SCH (21:35)
[2016-09-20] MEDS: ACETAMINOPHEN 500 MG TAB PO SCH (05:31)
[2016-09-20] MEDS: KETOROLAC TROMETHAMINE 15 MG/ML VIAL IV. SCH (05:31)
[2016-09-20 07:30] VITALS: BP 105/55; PULSE 73; TEMP 36.8; O2SAT 93
[2016-09-20] MEDS ORDERED: ASPEC325 PO (07:55)
[2016-09-20] MEDS ORDERED: RXC5 PO (07:55)
--- NOTE | 2016-09-20 07:56 | Discharge Instructions ---
Discharge Instructions Date of Service Sep 20, 2016. Admission Reason for Admission: Right Hip Osteoarthritis Discharge Discharge Diagnosis / Problem: Right Total Hip Discharge Goals Goal(s): Decrease discomfort, Improve function Activity Recommendations Activity Limitations: as noted below . Instructions / Follow-Up Instructions / Follow-Up Activity and Therapy Recommendations: * If you are using [facility] then Physical Therapy will be provided until they feel you are ready to start Outpatient Physical Therapy. If you are not using a Home Health agency then Outpatient Physical Therapy should start about 3-5 days from your day of surgery. Therapy will last about 3-6 weeks * You were shown a series of exercises in the hospital. Do these exercises three times each day including the exercises you were shown in physical therapy. * Get up and walk several times each day.~ For the first four weeks, try not to stand or walk for more than one hour at a time. If you do stand or walk for more than one hour, you will not hurt anything, but your leg will likely swell.~ ~ * As you feel comfortable, you may change from the walker or crutches to a cane and~then to independent walking. Medications: * Narcotic You will likely be sent home from the hospital with a prescription for the narcotic pain medication that worked best throughout your stay. * Aspirin Most patients will be required to take Aspirin 325mg twice a day for 6 weeks after surgery. This is obtained [id number] and a prescription is not necessary. * Other medications may be prescribed for specific circumstances. If you have any questions, please call the office at . * Resume previous home medications unless otherwise instructed TEDs/Elastic Stockings: The white elastic stockings help limit swelling and prevent blood clots from forming in your legs. The more you wear them, the more they work. Wear them for six weeks. Dressing Care: You will likely have a Prineo dressing covering your incision. This looks like a glued on clear mesh dressing. Do not remove this dressing until you follow- up in my office in 2-3 weeks. Its pretty hard to peel it off. You may leave the Prineo dressing uncovered or cover it if it is draining a little bit. No further dressing care is required Showering: You may shower 3 days from the day of surgery. Leave the Prineo dressing intact and let the soapy shower water run over it. Do not scrub or soak the dressing or the incision. Things To Watch For: * Drainage from the incision site that occurs more than one week after your surgery. * Increased redness at the incision site. * Fever above 102 degrees Fahrenheit. * Unusual chest pain or shortness of breath. * Call [facility] at with any of the above problems Follow-Up Visit: Follow-up with Dr. Gutierrez 2-3 weeks after your day of surgery. An appointment was probably scheduled when you signed-up for surgery in the office. If you have any questions call Office Instructions: More detailed instructions as well as Frequently Asked Questions were provided in a folder by our office when you signed-up for surgery. Please review these instructions when you get home. If you have any further questions or concerns, please feel free to call the office at [phone] Current Hospital Diet Patient's current hospital diet: Gluten Free Diet Discharge Diet Recommended Diet: Gluten Free Diet Procedures Procedures Performed: Right Anterior Total Hip Arthroplasty Uncemented Pending Studies Studies pending at discharge: no Medical Emergencies . Who to Call and When: Medical Emergencies: If at any time you feel your situation is an emergency, please call [phone] immediately. . Non-Emergent Contact Non-Emergency issues call your: Surgeon Call Non-Emergent contact if: wound has increased drainage, wound has increased redness . "Provider Documentation" section prepared by Abraham Gutierrez. . VTE Core Measure Inpt VTE Proph given/why not?: Other Anticoagulation (Aspirin 325 twice a day for 6 weeks)
[2016-09-20 08:11] VITALS: BP 105/55; PULSE 73; TEMP 36.8; O2SAT 93
[2016-09-20] MEDS: ESCITALOPRAM OXALATE 20 MG TAB PO SCH (08:44)
[2016-09-20] MEDS: PANTOprazole SOD 40 MG TAB PO SCH (08:44)
[2016-09-20] MEDS: LISINOPRIL 20 MG TAB PO SCH (08:44)
[2016-09-20] MEDS: DOCUSATE SODIUM 100 MG CAP PO SCH (08:45)
[2016-09-20] MEDS: CALCIUM 600MG + VIT D 400 IU TAB PO SCH (08:45)
[2016-09-20] MEDS: ASPIRIN 325 MG ECTAB PO SCH (08:45)
[2016-09-20] MEDS: MULTIVITAMIN TAB PO SCH (08:45)
[2016-09-20] MEDS: OXYCODONE HCL IR 5 MG TAB (IMMEDIATE RELEASE) PO PRN (08:46)
[2016-09-20] MEDS: HYDROCHLOROTHIAZIDE 25 MG TAB PO SCH (08:46)
--- NOTE | 2016-09-20 09:31 | DISCHARGE SUMMARY ---
DISCHARGE DIAGNOSIS: Primary osteoarthritis of the right hip. PROCEDURE: Right total hip arthroplasty on 09/18/[address] Abraham Gutierrez. DISCHARGE INSTRUCTIONS: 1. Aspirin 325 mg twice a day for 6 weeks. 2. Oxycodone 5-10 mg every 4 hours as needed for pain. 3. Calcium 1 tab daily. 4. Lexapro 20 mg daily. 5. Hydrochlorothiazide 25 mg daily. 6. Zestril 20 mg daily. 7. Daily multivitamin. 8. Follow up with Dr. Gutierrez in 2 weeks. 9. Call the office of Dr. Gutierrez with any questions or concerns. HOSPITAL COURSE: Mili is a pleasant 71-year-old female who presented to my office with complaints of chronic right hip pain. X-rays and clinical examination were diagnostic for primary osteoarthritis of the right hip. After failing conservative treatment, she elected to undergo right total hip arthroplasty. On 09/18/2016, she arrived at [facility] and underwent right anterior total hip arthroplasty without complications. She had a spinal anesthetic. Postoperatively, she was started on aspirin 325 mg twice a day for DVT prophylaxis and discharged to general orthopedic floor. Her hospital course was uneventful. On postop day #1, her H&H was stable at 9.3 and 27.5. She was able to get up and ambulate well with physical therapy. She was having pain but it was controlled with the oral pain medication. On postop day #2, the dressing was changed, the drain was pulled, her hip was feeling better, she worked well again with physical therapy and she was subsequently discharged to home with home health and the above instructions.
--- NOTE | 2016-09-20 09:35 | PROGRESS NOTE ---
DATE: 09/20/2016 CHIEF COMPLAINT: Status post right total hip arthroplasty postop day #2. PROGRESS: Mili was seen and examined at bedside today. Overall, she is doing very well. She had a lot of pain yesterday but feels better today. She did very well ambulating with physical therapy. She has no new complaints. PHYSICAL EXAMINATION: RIGHT HIP: The dressing has been changed and the drain has been pulled. Her incision is clean and dry, and she is neurovascularly intact. IMPRESSION: Status post right total hip arthroplasty postop day #2. PLAN: At this point, she is doing very well. She will be seen by physical therapy again this morning and then likely discharged to home with oral pain medications.
== END 2016-09-20 11:23 | disposition home health service (06) | DRG 470 ==
LOC: C.ACU 05:16 → C.3E 06:30 → ENRESERV 09:53
PROVIDERS: ADMIT Orthopaedic Surgery; ATTEND Orthopaedic Surgery
PROC: 0SR904A Replacement of Right Hip Joint with Ceramic on Polyethylene Synthetic Substitute, Uncemented, Open Approach (ICD-10-PCS; principal; 2016-09-18 07:00)
DX: M16.11 Unilateral primary osteoarthritis, right hip (principal); J44.9 Chronic obstructive pulmonary disease, unspecified; I10 Essential (primary) hypertension; K90.0 Celiac disease; F41.9 Anxiety disorder, unspecified; F32.9 Major depressive disorder, single episode, unspecified; G47.33 Obstructive sleep apnea (adult) (pediatric); Z99.89 Dependence on other enabling machines and devices; Z87.891 Personal history of nicotine dependence; Z79.1 Long term (current) use of non-steroidal anti-inflammatories (NSAID); Z79.2 Long term (current) use of antibiotics; Z79.899 Other long term (current) drug therapy

== ENCOUNTER → 2017-06-29 | Outpatient (CLI) | payer OTHER ==
[~2017-06-29] MED LIST changes: +ASPEC325 PO; +RXC5 PO
--- NOTE | 2017-06-29 13:14 | DIAGNOSTIC IMAGING REPORT ---
(CHEST) THORAX WITHOUT CT DOSE: 416.79 mGycm CLINICAL HISTORY: 71 years-old Female with J44.9 COPD, [id number]. Acute shortness of breath with coughing and wheezing TECHNIQUE: Multiaxial CT images of the chest were performed without contrast. A dose lowering technique was utilized adhering to the principles of ALARA. COMPARISON: Chest radiograph 07/14/2014. FINDINGS: No dominant thyroid nodule identified. 1.3 x 1.0 cm mildly enlarged precarinal lymph node with normal-appearing fatty hilum is likely physiologic. The heart is normal in size without pericardial effusion. Calcifications of the aortic annulus are noted with moderate atherosclerotic plaquing of the thoracic aorta. There is no pneumothorax or pleural effusion. Mild upper lobe predominant centrilobular emphysema. Mild biapical pleural-parenchymal scarring. Minimal areas of mosaic attenuation suggest air-trapping. There is mild bilateral bronchial wall thickening. Dependent subsegmental bibasilar ground glass opacities suggest atelectasis. 9 x 7 mm nodular opacity of the posterior basal segment right lower lobe, image 243 series 4 which appears somewhat linear in morphology on the coronal and sagittal images. Similar-appearing nodular density about the posterior basal segment left lower lobe is seen measuring up to 9 mm which also appears linear in morphology. The central airways appear patent. There are calcifications about the tracheobronchial tree. No acute process of the imaged upper abdomen. Small sliding-type hiatal hernia. 1.5 cm low attenuating lesion of the lateral left hepatic lobe with 1.2 cm low attenuating lesion of the right hepatic lobe are indeterminate on this noncontrast study and may reflect hepatic cysts or hemangiomas. The bones appear mildly demineralized. Multilevel degenerative changes about the spine. IMPRESSION: 1. Mild upper lobe predominant centrilobular emphysema with dependent subsegmental bibasilar atelectasis. Linear subpleural consolidative densities about the bilateral lung bases measuring up to 9 mm suggest areas of scarring/atelectasis with focal pulmonary nodules thought to be less likely. As a precautionary measure, a short-term 6 month follow-up may be helpful to further characterize. 2. No lobar airspace consolidation or pathologic adenopathy. Electronically signed by: Mariano Rocha M.D. 06/29/2017 1:12 PM Dictated Date/Time: 06/29/2017 12:59 PM
== END | disposition home or self-care (01) ==
LOC: C.CTS 12:30
PROVIDERS: ATTEND Internal Medicine Critical Care Medicine
DX: J44.9 Chronic obstructive pulmonary disease, unspecified (principal); J43.2 Centrilobular emphysema; J98.11 Atelectasis; J98.4 Other disorders of lung

== ENCOUNTER → 2017-08-25 | Outpatient (CLI) | payer OTHER ==
[~2017-08-25] MED LIST changes: +ALBU18002 INH; -ASPEC325 PO; -HYDC25 PO; +HYDR25TA5 PEG; +MELO-83 PO; +MULT1CAP53 PO; -NAPROXEN PO; +ROSU5TAB PO; -RXC5 PO
[2017-08-25 10:51] LABS: BASO % 0.7 %; BASO ABS # 0.03 K/uL (0-0.2); EOS % 4.8 %; EOS ABS # 0.21 K/uL (0-0.5); HEMATOCRIT 38.6 % (37-47); HEMOGLOBIN 13.3 g/dL (12.0-16.0); LYMPH % 29.2 %; LYMPH ABS # 1.27 K/uL (1.2-3.4); MEAN CELL VOLUME 90.8 fL (80-100); MEAN CORPUSCULAR HEMOGLOBIN 31.3 pg (25-34); MEAN CORPUSCULAR HGB CONC 34.5 g/dl (32-36); MEAN PLATELET VOLUME 9.6 fL (7.4-10.4); MONO % 7.8 %; MONO ABS # 0.34 K/uL (0.11-0.59); NEUT % 57.5 %; PLATELET COUNT 251 K/uL (130-400); RED CELL DISTRIBUTION WIDTH SD 43.3 fL (36.4-46.3); WHITE BLOOD COUNT 4.35 K/uL (4.8-10.8)
[2017-08-25 10:59] LABS: BLOOD UREA NITROGEN 21 mg/dl (7-18); CALCIUM 9.5 mg/dl (8.5-10.1); CARBON DIOXIDE 27 mmol/L (21-32); CREATININE 0.97 mg/dl (0.60-1.20); GLUCOSE 99 mg/dl (70-99); POTASSIUM 5.1 mmol/L (3.5-5.1); SODIUM 136 mmol/L (136-145)
[2017-08-25 11:04] LABS: PTT PATIENT 24.2 SECONDS (21.0-31.0)
== END | disposition home or self-care (01) ==
LOC: C.CPL 09:30
PROVIDERS: ATTEND Orthopaedic Surgery
DX: Z01.810 Encounter for preprocedural cardiovascular examination (principal); Z01.812 Encounter for preprocedural laboratory examination

== ENCOUNTER 2017-09-21 05:24 | Inpatient (IN) | payer OTHER ==
[2017-08-23 14:24] VITALS: BMI 27.0
[2017-08-25 09:45] VITALS: BMI 27.0
--- NOTE | 2017-08-25 10:07 | PAT Medication Instructions ---
Service Date Aug 25, 2017. Current Home Medication List Albuterol Sulfate (Proair Respiclick), 1 INHA INH QD PRN for SOB/Wheezing Calcium Carbonate-Vitamin D (Calcium), 1 TAB PO QAM Escitalopram Oxalate (Lexapro), 20 MG PO QAM Hydrochlorothiazide (Hydrochlorothiazide), 1 TAB PEG QAM Lisinopril (Zestril), 20 MG PO QAM Meloxicam (Meloxicam), 1 TAB PO QAM Multiple Vitamins W/ Minerals (Macular Health Formula), 1 TAB PO QAM Multivitamin (Multivitamin), 1 TAB PO QAM Rosuvastatin Calcium (Crestor), 5 MG PO QA Medication Instructions For Your Scheduled Surgery - Hold the following medications per your surgeon's instructions: Meloxicam (Meloxicam), 1 TAB PO QAM - Hold the following medications the morning of surgery: Calcium Carbonate-Vitamin D (Calcium), 1 TAB PO QAM Hydrochlorothiazide (Hydrochlorothiazide), 1 TAB PEG QAM Lisinopril (Zestril), 20 MG PO QAM Multiple Vitamins W/ Minerals (Macular Health Formula), 1 TAB PO QAM Multivitamin (Multivitamin), 1 TAB PO QAM - Take the following medications the morning of surgery with a sip of water: Albuterol Sulfate (Proair Respiclick), 1 INHA INH QD PRN for SOB/Wheezing (if needed, and bring with you to the hospital) Escitalopram Oxalate (Lexapro), 20 MG PO QAM Rosuvastatin Calcium (Crestor), 5 MG PO QAM - Take the following medications as scheduled the night before surgery: Albuterol Sulfate (Proair Respiclick), 1 INHA INH QD PRN for SOB/Wheezing (if needed) If you have any questions please call us at [phone] or [phone] or [phone]
--- NOTE | 2017-09-20 09:10 | HISTORY & PHYSICAL EXAMINATION ---
DATE OF ADMISSION: 09/21/2017 CHIEF COMPLAINT: Primary osteoarthritis of the left hip. HISTORY OF PRESENT ILLNESS: Mili is a pleasant 72-year-old female who I did a right total hip arthroplasty in 09/2016. She did very well with that. Unfortunately, she is not having left hip pain. X-rays and clinical examination were diagnostic for primary osteoarthritis of the left hip and after failing conservative treatment, she elected to proceed with a left total hip arthroplasty. PAST MEDICAL HISTORY: Significant for depression, hyperlipidemia, hypertension, celiac disease, and seasonal allergies. PAST SURGICAL HISTORY: Significant for removal of benign growth and a right total hip arthroplasty in 09/2016. ALLERGIES: LATEX, WHICH CAUSES A RASH AND SHELLFISH. MEDICATIONS: Include Lexapro, lisinopril, hydrochlorothiazide, nitrofurantoin, Crestor, and meloxicam as needed. FAMILY HISTORY: Significant for heart disease, diabetes, and lymphoma. SOCIAL HISTORY: The patient is , has 3 children, has 1-2 drinks a day, moderately active and her is able to take care of her upon her return home. REVIEW OF SYSTEMS: She complains mostly of left hip pain. All other pertinent review of systems are negative. PHYSICAL EXAMINATION: GENERAL: She is awake, alert, and oriented x3. She is in no apparent distress. She is very pleasant. HEENT: Pupils equal, round, and reactive to light. Extraocular movements intact. Oral mucosa pink and moist. HEART: Regular rate per radial pulse. LUNGS: Mireille symmetrically bilaterally with no audible breath sounds. ABDOMEN: Soft, nontender, nondistended. MUSCULOSKELETAL: On physical examination of her hip, her leg lengths are essentially equal. She has 90 degrees of flexion and about 10 degrees of internal rotation, 30 degrees of external rotation. She has significant pain and crepitus and range of motion. She has no pain with straight leg raise bilaterally. IMAGING DATA: X-rays of the pelvis show a well-fitting right total hip arthroplasty. There is severe osteoarthritis of the left hip with bone on bone articulation, joint space narrowing and osteophyte formation. IMPRESSION: Primary osteoarthritis of the left hip. PLAN: We will proceed with a Biomet Taperloc left total hip arthroplasty. Postoperatively, we will use aspirin for DVT prophylaxis. She plans for discharge to [facility] and then to [place] physical therapy following a brief rehab stay. ALEXYS
[2017-09-21] VITALS (13 sets, daily range): BP systolic 108–127; BP diastolic 58–80; PULSE 56–114; TEMP 36.3–37; O2SAT 90–99; Ht 172.7 cm; Wt 81.6 kg
[~2017-09-21] VITALS: Ht 172.7 cm; Wt 81.6 kg
[~2017-09-21 05:24] MED LIST changes: -HYDR25TA5 PEG; +HYDR25TA5 PO
[2017-09-21] MEDS ORDERED: CEFAZOLIN 2000MG IV PUSH 15 ML IV SCH (06:00)
[2017-09-21] MEDS ORDERED: TRANEXAMIC ACID INJ 1,000 MG x 1 Bag Intra-Op IV SCH ×2 (06:00)
[2017-09-21] MEDS ORDERED: LACTATED RINGER'S 1000ML 500 ML IV SCH (06:00)
[2017-09-21] MEDS ORDERED: FAMOTIDINE 20 MG TAB PO SCH (06:00)
[2017-09-21] MEDS ORDERED: ROPIVACAINE 5MG/ML 30 ML 150 MG, BUPIVACAINE 0.5% MPF INJ 30 ML, EpINEphrine HCL INJ 0.... INFIL SCH ×8 (06:00)
[2017-09-21] MEDS ORDERED: LACTATED RINGER'S 1000ML IV SCH (06:00)
[2017-09-21] MEDS ORDERED: ACETAMINOPHEN 500 MG TAB PO SCH (06:00)
[2017-09-21] MEDS ORDERED: LACTATED RINGER'S 1000ML 1,000 ML IV SCH (06:00)
[2017-09-21] MEDS ORDERED: GABAPENTIN 300 MG CAP PO SCH (06:00)
[2017-09-21] MEDS ORDERED: BUPIVACAINE 0.5 % 5 MG/1 ML PF 10ML VIAL ONE (06:28)
--- NOTE | 2017-09-21 06:36 | History & Physical Bridge Note ---
H&P Re-Evaluation Bridge Note: I have examined the patient, reviewed the History & Physical and in the interval since the performance of the History & Physical I have noted the following changes of clinical significance: No changes noted
[2017-09-21] MEDS: TRANEXAMIC ACID INJ 1,000 MG x 2 Bags IV SCH ×6 (06:48→10:29)
[2017-09-21] MEDS ORDERED: ORTHO JOINT ANESTHETIC ONE (06:55)
[2017-09-21] MEDS ORDERED: BACITRACIN 50000 UNIT VIAL ONE (06:55)
[2017-09-21] MEDS ORDERED: MIDAZOLAM HCL 1 MG/ML 2ML VIAL ONE ×2 (06:56)
[2017-09-21] MEDS ORDERED: FENTANYL CITRATE INJ 50 MCG/1 ML 2 ML VIAL ONE (06:56)
[2017-09-21] MEDS ORDERED: PROPOFOL IV EMULSION 10 MG/ML 20 ML VIAL ONE (07:42)
[2017-09-21] MEDS ORDERED: LIDOCAINE HCL 2% 2 ML VIAL (20MG/ML) ONE (07:42)
[2017-09-21] MEDS ORDERED: PHENYLEPHRINE 100MCG/ML 5ML SYR ONE (07:42)
[2017-09-21] MEDS ORDERED: EpHEDrine SULFATE 50MG/5ML SYR ONE (07:42)
--- NOTE | 2017-09-21 09:12 | [facility] Post Operative Brief Note ---
Immediate Operative Summary Operative Date Sep 21, 2017. Pre-Operative Diagnosis Primary osteoarthritis of the left hip Post-Operative Diagnosis Primary osteoarthritis of the left hip Procedure(s) Performed Left Anterior Total Hip Arthroplasty, Uncemented Surgeon Dr. Gutierrez Dispatch Manager Surgeon(s) Alli Hernandez PA-C Estimated Blood Loss 250cc Findings Consistent with Post-Op Diagnosis Specimens A: Left femoral head Anesthesia Type Spinal MAC
[2017-09-21] MEDS ORDERED: ONDANSETRON INJ 2 MG/ML 2 ML VIAL IV PRN (09:15)
[2017-09-21] MEDS ORDERED: OXYCODONE HCL IR 5 MG TAB (IMMEDIATE RELEASE) PO PRN (09:15)
[2017-09-21] MEDS ORDERED: ALBUTEROL HFA INHALER 8.5 GM INH PRN (09:15)
[2017-09-21] MEDS ORDERED: BISACODYL 10 MG SUPP PR PRN (09:15)
[2017-09-21] MEDS ORDERED: MAGNESIUM HYDROXIDE SUSP 30 ML UDC PO PRN (09:15)
[2017-09-21] MEDS ORDERED: MoRPHine SULFATE 2 MG/ML CARP IV PRN (09:15)
[2017-09-21] MEDS ORDERED: SOD PHOSPHATE/SOD BIPHOSPHATE ENEMA 132 ML BTL PR PRN (09:15)
[2017-09-21] MEDS ORDERED: METOCLOPRAMIDE HCL INJ 5 MG/ML 2 ML VIAL IV PRN (09:15)
[2017-09-21] MEDS ORDERED: CEFAZOLIN IV 2,000 MG in DEXTROSE 5% 50ML 50 ML IV SCH (09:15)
--- NOTE | 2017-09-21 10:01 | Anesthesiology Progress Note ---
Anesthesia Post Op Note Date & Time Sep 21, 2017 at 10:01 Vital Signs Pain Intensity: 0 Vital Signs Past 12 Hours Date Time Temp Pulse Resp B/P (MAP) Pulse Ox O2 Delivery O2 Flow Rate FiO2 09/21/17 09:53 62 18 09/21/17 09:53 62 18 98 09/21/17 09:51 119/57 09/21/17 09:48 64 17 09/21/17 09:48 64 17 98 09/21/17 09:47 36.4 62 20 118/51 (75) 98 Nasal Cannula 2 09/21/17 09:47 64 18 97 09/21/17 09:47 64 18 09/21/17 09:46 118/51 09/21/17 09:42 62 19 09/21/17 09:42 61 19 98 09/21/17 09:41 117/53 09/21/17 09:41 117/53 09/21/17 09:39 62 17 09/21/17 09:39 63 17 98 09/21/17 09:39 63 17 98 09/21/17 09:39 62 17 09/21/17 09:36 116/47 09/21/17 09:36 116/47 09/21/17 09:34 62 16 99 09/21/17 09:34 62 16 09/21/17 09:34 62 16 99 09/21/17 09:34 62 16 09/21/17 09:31 126/52 09/21/17 09:31 126/52 09/21/17 09:29 64 18 09/21/17 09:29 64 18 09/21/17 09:29 65 18 100 09/21/17 09:29 65 18 100 09/21/17 09:26 116/58 09/21/17 09:26 116/58 09/21/17 09:24 73 19 09/21/17 09:24 72 19 97 09/21/17 09:24 73 19 09/21/17 09:24 72 19 97 09/21/17 09:24 36.8 70 16 112/54 (62) 98 Oxymask 10 09/21/17 06:19 95 Room Air 09/21/17 06:10 37 74 18 127/80 Notes Mental Status: alert / awake / arousable, participated in evaluation Pt Amnestic to Procedure: Yes Nausea / Vomiting: adequately controlled Pain: adequately controlled Airway Patency, RR, SpO2: stable & adequate BP & HR: stable & adequate Hydration State: stable & adequate Neuraxial Anesthesia: was administered, sensory block is resolving Anesthetic Complications: no major complications apparent
--- NOTE | 2017-09-21 10:02 | DIAGNOSTIC IMAGING REPORT ---
L PELVIS/UNILATERAL HIP 1 VIEW CLINICAL HISTORY: Postoperative evaluation. COMPARISON: Pelvis radiograph November 02, 2016. FINDINGS: Alignment of the total left hip arthroplasty is anatomic. There is no periprosthetic fracture or unexpected radiopaque foreign body. Acetabular screw is noted as well as skin katie. Alignment of the right hip arthroplasty is anatomic. IMPRESSION: Expected findings following total left hip arthroplasty. Electronically signed by: Flex Gamez M.D. 09/21/2017 10:01 AM Dictated Date/Time: 09/21/2017 10:00 AM
--- NOTE | 2017-09-21 10:04 | DIAGNOSTIC IMAGING REPORT ---
L HIP UNILATERAL 1 VIEW CLINICAL HISTORY: 72 years-old Female presenting with LT ANTERIOR TOTAL. TECHNIQUE: 2 fluoroscopic image(s) recorded as part of an intraoperative procedure. COMPARISON: 09/21/2017 at 9:33 AM and 08/09/2017. FINDINGS/IMPRESSION: Postsurgical changes of total right hip arthroplasty. No malalignment. No gross evidence of periprosthetic fracture. Soft tissue emphysema, expected postsurgical findings. Please see surgical report for further details. Fluoroscopy dosage (mGy): 3.86. Fluoroscopy time: 39.4 seconds. Number or time of fluoroscopic spot images: 0. Electronically signed by: Kyle Roberson M.D. 09/21/2017 10:03 AM Dictated Date/Time: 09/21/2017 10:02 AM
[2017-09-21] MEDS: SODIUM CHLORIDE 0.9% 1000ML 1,000 ML IV SCH ×2 (10:30→20:31)
[2017-09-21] MEDS: KETOROLAC TROMETHAMINE 15 MG/ML VIAL IV. SCH ×3 (11:32→23:56)
--- NOTE | 2017-09-21 12:05 | OPERATIVE REPORT ---
DATE OF OPERATION: 09/21/2017 PREOPERATIVE DIAGNOSIS: Primary osteoarthritis of the left hip. POSTOPERATIVE DIAGNOSIS: Primary osteoarthritis of the left hip. PROCEDURE: Left total hip arthroplasty. SURGEON: Dr. Abraham Gutierrez. AIR HOSE COUPLER: Alli Hernandez PA-C, whose assistance was necessary for retraction and closure. ANESTHESIA: Spinal. COMPLICATIONS: None. CONDITION: Stable to PACU. IMPLANTS USED: I used a [employer]omet Taperloc total hip arthroplasty system with a size 52 mm G7 cup with a single 25 mm screw, neutral E1 poly liner, a size 12 high offset Taperloc stem and a 36 ceramic head with a -6 neck. INDICATIONS: Mili is a pleasant 72-year-old female who presented to my office with chronic bilateral hip pain. X-rays and clinical examination were diagnostic for primary osteoarthritis of bilateral hips. She underwent a right total hip arthroplasty year ago. After failing conservative treatment with the left hip, she elected to undergo a left total hip arthroplasty. OPERATION AND FINDINGS: On 09/21/2017, she arrived at [facility] for the above procedure. She was seen in the preoperative holding area and the operative extremity was identified and signed. She was given a preoperative antibiotic and a spinal anesthetic. She was taken back to the operating room, laid on the table in supine position and given basic sedation. The left leg was brought out to a Purist leg positioner. The left hip was then prepped and draped in sterile fashion. Time-out was done and the patient's operative extremity was properly identified. An anterior approach was used. Dissection was taken down through the fascia and the tensor muscle belly was retracted laterally and the rectus was retracted medially. The circumflex vessels were ligated. The capsule was then incised and tagged for later repair. The femoral neck was then resected and the femoral head was removed. The acetabulum was then exposed. Time was spent doing a complete circumferential labral release. Sequential reaming up to a size 51 mm reamer was done. Final reamings were done under fluoroscopy to ensure appropriate version. A 52 mm G7 cup was then impacted into place. A single 25 mm screw was placed. A neutral E-poly liner was then snapped into place. The proximal femur was then exposed. Sequential broaching up to a size 12 broach was done. A high offset neck and a standard head were trialed. The hip was reduced. Fluoroscopic images showed anatomic sizing, but showed the hip to be a little too long. The hip was then dislocated. The broach was removed. The final size 12 implant was then impacted into place. A 36 mm ceramic head with a -6 neck was then impacted into place. The hip was reduced. Final fluoroscopic images showed anatomic alignment and sizing. The surrounding soft tissues were injected with 100 mL of orthopedic pain control cocktail. The wound was irrigated with 3 liters normal saline solution with bacitracin. The capsule was then closed with #1 Vicryl suture. Fascia was closed with #1 PDS. Skin was closed with 2-0 Vicryl, katie and a Prevena VAC dressing. She was then transferred to a hospital bed and taken to postanesthesia care unit in stable condition. She tolerated the procedure well. I attest to the content of the Intraoperative Record and any orders documented therein. Any exception s are noted below.
[2017-09-21] MEDS: ACETAMINOPHEN IV 1,000 MG in EMPTY BAG 0 ML IV SCH ×2 (13:05→22:07)
--- NOTE | 2017-09-21 13:05 | Discharge Instructions ---
Discharge Instructions Date of Service Sep 21, 2017. Admission Reason for Admission: Left Hip Degenerative Joint Disease Discharge Discharge Diagnosis / Problem: Left Total Hip Discharge Goals Goal(s): Decrease discomfort, Improve function Activity Recommendations Activity Limitations: as noted below . Instructions / Follow-Up Instructions / Follow-Up Activity and Therapy Recommendations: * If you are using [facility] then Physical Therapy will be provided until they feel you are ready to start Outpatient Physical Therapy. If you are not using a Home Health agency then Outpatient Physical Therapy should start about 3-5 days from your day of surgery. Therapy will last about 3-6 weeks * You were shown a series of exercises in the hospital. Do these exercises three times each day including the exercises you were shown in physical therapy. * Get up and walk several times each day.~ For the first four weeks, try not to stand or walk for more than one hour at a time. If you do stand or walk for more than one hour, you will not hurt anything, but your leg will likely swell.~ ~ * As you feel comfortable, you may change from the walker or crutches to a cane and~then to independent walking. Medications: * Narcotic You will likely be sent home from the hospital with a prescription for the narcotic pain medication that worked best throughout your stay. * Aspirin Most patients will be required to take Aspirin 325mg twice a day for 6 weeks after surgery. This is obtained [id number] and a prescription is not necessary. * Other medications may be prescribed for specific circumstances. If you have any questions, please call the office at . * Resume previous home medications unless otherwise instructed TEDs/Elastic Stockings: The white elastic stockings help limit swelling and prevent blood clots from forming in your legs. The more you wear them, the more they work. Wear them for six weeks. Dressing Care: You will likely have a purple VAC dressing after surgery. This dressing will keep the incision dry and promote early healing. After about 8 days the batteries will wear out and the VAC will lose suction. Simply remove the dressing at that time and throw everything away, including the small suction machine. Then, you may leave the katie open to air or cover them with a dry dressing so they do not rub on your pants. The katie will be removed at your 2 week follow-up appointment. Showering: You may shower immediately with the purple VAC dressing. Let the shower spray hit your opposite side and slowly pat the plastic dry. Do not soak the dressing. After the dressing is removed you may shower normally with the katie exposed. Let soapy water run over the katie and pat them dry. Things To Watch For: * Drainage from the incision site that occurs more than one week after your surgery. * Increased redness at the incision site. * Fever above 102 degrees Fahrenheit. * Unusual chest pain or shortness of breath. * Call [facility] at with any of the above problems Follow-Up Visit: Follow-up with Dr. Gutierrez 2 weeks after your day of surgery. An appointment was probably scheduled when you signed-up for surgery in the office. If you have any questions call Office Instructions: More detailed instructions as well as Frequently Asked Questions were provided in a folder by our office when you signed-up for surgery. Please review these instructions when you get home. If you have any further questions or concerns, please feel free to call the office at [phone] Current Hospital Diet Patient's current hospital diet: Regular Diet, Gluten Free Diet Discharge Diet Recommended Diet: Regular Diet, Gluten Free Diet Procedures Procedures Performed: Left Anterior Total Hip Arthroplasty, Uncemented Pending Studies Studies pending at discharge: no Medical Emergencies . Who to Call and When: Medical Emergencies: If at any time you feel your situation is an emergency, please call [phone] immediately. . Non-Emergent Contact Non-Emergency issues call your: Surgeon Call Non-Emergent contact if: wound has increased drainage, wound has increased redness . "Provider Documentation" section prepared by Abraham Gutierrez. .
[2017-09-21] MEDS: CEFAZOLIN IV 2,000 MG in SYRINGE 0 ML IV SCH ×2 (14:27→22:09)
[2017-09-21] MEDS: DOCUSATE SODIUM 100 MG CAP PO SCH (20:31)
[2017-09-21] MEDS: ASPIRIN 325 MG ECTAB PO SCH (20:32)
[2017-09-21] MEDS ORDERED: SENNA 8.6 MG TAB PO SCH (21:00)
[2017-09-22 04:00] VITALS: BP 123/67; PULSE 61; TEMP 36.4; O2SAT 97
[2017-09-22] MEDS: ACETAMINOPHEN IV 1,000 MG in EMPTY BAG 0 ML IV SCH (05:57)
[2017-09-22] MEDS: KETOROLAC TROMETHAMINE 15 MG/ML VIAL IV. SCH ×2 (05:58→12:37)
[2017-09-22] MEDS: SODIUM CHLORIDE 0.9% 1000ML 1,000 ML IV SCH (06:07)
[2017-09-22 07:03] LABS: BASO % 0.2 %; BASO ABS # 0.01 K/uL (0-0.2); EOS % 1.7 %; HEMATOCRIT 30.2 % (37-47); HEMOGLOBIN 10.4 g/dL (12.0-16.0); IG# 0.01 K/uL (0.00-0.02); LYMPH ABS # 1.12 K/uL (1.2-3.4); MEAN CELL VOLUME 90.7 fL (80-100); MEAN CORPUSCULAR HEMOGLOBIN 31.2 pg (25-34); MEAN CORPUSCULAR HGB CONC 34.4 g/dl (32-36); MEAN PLATELET VOLUME 9.7 fL (7.4-10.4); MONO ABS # 0.53 K/uL (0.11-0.59); NEUT % 69.9 %; NEUT ABS # 4.13 K/uL (1.4-6.5); PLATELET COUNT 162 K/uL (130-400); RED CELL DISTRIBUTION WIDTH SD 43.1 fL (36.4-46.3)
[2017-09-22] MEDS ORDERED: ASPEC325 PO (07:14)
[2017-09-22] MEDS ORDERED: RXC5 PO (07:14)
[2017-09-22 07:21] VITALS: BP 132/70; PULSE 64; TEMP 36.5; O2SAT 98
[2017-09-22 07:35] LABS: CREATININE 1.05 mg/dl (0.60-1.20); POTASSIUM 4.1 mmol/L (3.5-5.1)
[2017-09-22] MEDS: ASPIRIN 325 MG ECTAB PO SCH (08:35)
--- NOTE | 2017-09-22 08:35 | PROGRESS NOTE ---
DATE: 09/22/2017 CHIEF COMPLAINT: Status post anterior left total hip arthroplasty, postop day #1. PROGRESS: Mili was seen and examined at bedside today. Overall, she is doing very well. She has been up and ambulating to the bathroom. She has not been in the hallway yet. She has minimal pain in the hip. She has no complaints. PHYSICAL EXAMINATION: LEFT HIP: Her leg lengths are equal. She has active dorsiflexion and plantarflexion of the left ankle. The Prevena VAC dressing is to suction. DATA: She has an H and H today of 10.4 and 30.2. Her PRP is still pending. Vital signs are all stable on room air. She is voiding on her own and has already had a bowel movement. X-rays postoperatively of the left hip show the prosthesis to be in anatomic alignment without any obstruction, dislocation or loosening. IMPRESSION: Status post left anterior total hip arthroplasty, postop day #1. PLAN: At this point, she is doing very well. She will be seen by physical therapy today for ambulation. She is hoping to go to [facility] rehab for a brief stay before being discharged with [facility]. She is orthopedically stable for discharge to [facility] later today if a bed is available.
[2017-09-22] MEDS: DOCUSATE SODIUM 100 MG CAP PO SCH (08:36)
--- NOTE | 2017-09-22 08:54 | Anesthesiology Progress Note ---
Anesthesia Post Op Note Date & Time Sep 22, 2017 at 08:53 Vital Signs Pain Intensity: 0.0 Vital Signs Past 12 Hours Date Time Temp Pulse Resp B/P (MAP) Pulse Ox O2 Delivery O2 Flow Rate FiO2 09/22/17 07:21 36.5 64 19 132/70 (90) 98 Room Air 09/22/17 04:00 36.4 61 16 123/67 (85) 97 Room Air 09/21/17 23:55 Room Air 09/21/17 23:16 36.5 68 16 125/64 (84) 95 Room Air Notes Mental Status: alert / awake / arousable, participated in evaluation Pt Amnestic to Procedure: Yes Nausea / Vomiting: adequately controlled Pain: adequately controlled Airway Patency, RR, SpO2: stable & adequate BP & HR: stable & adequate Hydration State: stable & adequate Neuraxial Anesthesia: sensory block resolved Anesthetic Complications: no major complications apparent
[2017-09-22] MEDS ORDERED: ROSUVASTATIN CALCIUM 5 MG TAB PO SCH (09:00)
[2017-09-22] MEDS ORDERED: MULTIVITAMIN TAB PO SCH (09:00)
[2017-09-22] MEDS ORDERED: LISINOPRIL 20 MG TAB PO SCH (09:00)
[2017-09-22] MEDS ORDERED: ESCITALOPRAM OXALATE 20 MG TAB PO SCH (09:00)
[2017-09-22] MEDS ORDERED: HYDROCHLOROTHIAZIDE 25 MG TAB PO SCH (09:00)
--- NOTE | 2017-09-22 09:21 | DISCHARGE SUMMARY ---
DISCHARGE DIAGNOSIS: Primary osteoarthritis of the left hip. PROCEDURE: Left anterior total hip arthroplasty on 09/21/[address] Abraham Gutierrez. DISCHARGE MEDICATIONS: 1. Aspirin 325 mg twice a day for 6 weeks. 2. Oxycodone 5-10 mg every 4 hours as needed for pain. 3. Albuterol as needed for wheezing. 4. Lexapro 20 mg daily. 5. Hydrochlorothiazide 25 mg daily. 6. Zestril 20 mg daily. 7. Meloxicam 15 mg daily. 8. Multivitamin. 9. Crestor 5 mg daily. DISCHARGE INSTRUCTIONS: 1. ANA hose stockings for 6 weeks. 2. Prevena VAC dressing for 8 days. 3. Follow up with Dr. Gutierrez in 2 weeks. 4. Call the office of Dr. Gutierrez with any questions or concerns. HOSPITAL COURSE: Mili is a pleasant 72-year-old female who presented to my office with chronic increasing left hip pain. X-rays and clinical examination were diagnostic for primary osteoarthritis of the left hip. After failing conservative treatment, she elected to undergo a left anterior total hip arthroplasty. On 09/21/2017, she arrived at [facility] and underwent an anterior left total hip arthroplasty without complication. Postoperatively, she was started on aspirin for DVT prophylaxis and discharged to general orthopedic floor. Her hospital course was uneventful. On postop day #1, her H and H were stable at 10.4 and 30.2. She was able to participate well with physical therapy, and her pain was well controlled. She was subsequently discharged to [facility] with the above instructions.
[2017-09-22 09:40] VITALS: BP 136/74; PULSE 68; O2SAT 98
[2017-09-22 11:09] VITALS: BP 116/70; PULSE 68; TEMP 36.7; O2SAT 99
[2017-09-22] MEDS ORDERED: ACETAMINOPHEN 500 MG TAB PO SCH (14:00)
[2017-09-22 15:35] VITALS: BP 134/65; PULSE 66; TEMP 36.8; O2SAT 96
[2017-09-22 16:17] VITALS: BP 134/65; PULSE 66; TEMP 36.8; O2SAT 96
== END 2017-09-22 17:21 | DRG 470 ==
LOC: C.ACU 05:24 → C.3E 06:30 → ENRESERV 09:45
PROVIDERS: ADMIT Orthopaedic Surgery; ATTEND Orthopaedic Surgery
PROC: 0SR904A Replacement of Right Hip Joint with Ceramic on Polyethylene Synthetic Substitute, Uncemented, Open Approach (ICD-10-PCS; principal; 2017-09-21 07:15)
DX: M16.12 Unilateral primary osteoarthritis, left hip (principal); F32.9 Major depressive disorder, single episode, unspecified; E78.5 Hyperlipidemia, unspecified; I10 Essential (primary) hypertension; K90.0 Celiac disease